=== PATIENT | female | born 1955 | race Caucasian/White ===

== ENCOUNTER → 2018-08-23 | Outpatient (CLI) | payer MEDICARE, MEDICAID, SELFPAY | END | disposition home or self-care (01) | DX: G47.10 Hypersomnia, unspecified (principal); F41.9 Anxiety disorder, unspecified | CPT/HCPCS: 95810 ==

== ENCOUNTER → 2018-09-30 | Outpatient (CLI) | payer MEDICARE, MEDICAID, SELFPAY | END | disposition home or self-care (01) | LOC: SL 20:30 | DX: G47.33 Obstructive sleep apnea (adult) (pediatric) (principal) | CPT/HCPCS: 95811 ==

== ENCOUNTER → 2018-10-15 10:51 | Outpatient (CLI) | payer MEDICAID, SELFPAY | DX: G47.33 Obstructive sleep apnea (adult) (pediatric) (principal) ==

== ENCOUNTER → 2018-12-13 | Outpatient (CLI) | payer MEDICAID, SELFPAY ==
[2016-07-06 04:08] VITALS: BMI 30.5
--- NOTE | 2018-12-13 09:38 | EKG12_ITS ---
Test Reason : PREOP Blood Pressure : / mmHG Vent. Rate : 056 BPM Atrial Rate : 056 BPM P-R Int : 144 ms QRS Dur : 098 ms QT Int : 452 ms P-R-T Axes : -20 033 058 degrees QTc Int : 436 ms Sinus bradycardia Otherwise normal ECG Confirmed by KASIE BENAVIDEZ, MATIAS ([id number]), assignment desk editor LIN ORTIZ ([id number]) on 12/18/2018 9:38:29 A M Referred By: Chitra Rankin Confirmed By:SHALOM FERRO MD
== END | disposition home or self-care (01) ==
LOC: CVS 09:34
PROVIDERS: Referring Provider Nurse Practitioner Family; Visit Provider Nurse Practitioner Family
DX: H43.12 Vitreous hemorrhage, left eye (principal)
CPT/HCPCS: 93005

== ENCOUNTER 2019-04-12 20:22 | Emergency (ER) | payer MEDICARE, MEDICAID, SELFPAY ==
[2019-04-12 20:22] VITALS: BP 138/78; PULSE 71; RESP 16; TEMP 36.6; O2SAT 96; BMI 29.7
[2019-04-12 20:36] LABS: Bedside Glucose 422 mg/dL (70-110)
--- NOTE | 2019-04-12 22:09 | ED.DCSUM_ITS ---
- ER Visit Summary Date of Service: 04/12/19 Chief Complaint: Hyperglycemia History of Present Illness: The patient is a 64 F who presents with hyperglycemia that has been getting progressively worse over the past several days. Family states patient was recently switched to insulin pens and her blood sugars have been getting higher since that time. Family states patient's blood sugar at home was 504. Patient denies any recent fevers or chills. Patient does admit to a cough that is chronic. Patient denies any nausea or vomiting. Patient denies any dysuria or hematuria. Patient denies any urinary frequency. Physical Examination: Vital signs are stable. Patient is afebrile. Patient is in no acute distress. Oral mucosa is pink and moist. Neck is supple. Trachea is midline. There is no JVD noted. Heart was regular rate and rhythm. Lungs are clear and equal bilaterally. Abdomen is soft. Bowel sounds are normal. There is no tenderness. There is no rebound or guarding noted. Skin is warm dry. Cranial nerves II through XII are intact. There are no focal motor or sensory deficits noted. Extremities are intact. There is no calf tenderness or edema. Test Results: CBC was normal. Comprehensive metabolic profile showed a glucose of 328, BUN of 40, and creatinine of 1.17. Venous blood gas showed a pH of 7.42. Urinalysis showed leukocyte esterase of 25 with 10-25 white blood cells and 1+ bacteria. Serum ketones were negative. Emergency Department Course and Treatment: Patient was given IV fluids here. Patient was feeling better on reevaluation. Patient was instructed to keep a log of her blood sugars. Patient was given a prescription for Bactrim. Patient was instructed to follow-up with Dr. Keane as scheduled on Sunday. Patient and family understood and were agreeable with the plan. All questions were answered. Disposition: Discharge home Impression: 1. Urinary tract infection 2. Hyperglycemia This note was generated with [employer] dictation software. It may contain incorrect words, spelling, and punctuation that were not noted in review of the chart prior to signing ED Disposition - Plan for ED Patient: Disposition: Home or Assisted Living Diagnosis: Hyperglycemia, Urinary tract infection Instructions: ED Diabetic Hyperglycemia Prescriptions: Smz/Tmp Ds [Bactrim Ds] 1 tab PO BID #6 tab Prescription Printed Referrals: [facility] Yuki Leonard [Primary Care Provider] - Hilario Keane MD [STAFF PHYSICIAN] - Keep Melvin appointment
[2019-04-12 22:22] VITALS: BP 169/69; PULSE 67; RESP 16; O2SAT 95
[2019-04-12] MEDS: 0.9% Normal Saline 1,000 ML 1000 ML IV (22:30)
[2019-04-12 22:39] LABS: Color, Urine Yellow (Yellow); Glucose, Dipstick 1000 mg/dl (Normal); Ketone-Dipstick Negative (Negative); Leukocyte Esterase-Dipstick 25 /ul (Negative); Mucous, Urine 0 SEEN /hpf (<or=2+); Nitrite-Dipstick Negative (Negative); Occult Blood-Urine Negative /ul (Negative); Protein-Dipstick Negative (Negative); Red Blood Cells-Urine 0 SEEN /hpf (0-5); Specific Gravity, Urine 1.015 (1.002-1.030); Urine Bilirubin Dipstick Negative (Negative); Urine Clarity Sl. Cloudy (Clear); Urine Urobilinogen Normal (Normal)
[2019-04-12 22:45] LABS: Squamous Epithelial Cells - UA 0-5 SEEN /hpf (5-10)
[2019-04-12 22:47] LABS: Bacteria 1+ /hpf (None Seen)
[2019-04-12 22:48] LABS: White Blood Cells 10-25 SEEN /hpf (0-5)
[2019-04-12 22:50] LABS: Blood Gas Specimen Type VEN; O2 Delivery Device Room Air; SITE R Brachial; Time Given 2238; VBG BASE EXCESS 4 mmol/L (-1.0-3.5); VBG Bicarbonate 29 mmol/L (22-26); VBG Oxygen Content 30 mmol/L (23-33); VBG PO2 127 mmHg (25-40); VBG SO2 99 % (50-70); VBG pCO2 44.4 mmHg (41-51); VBG pH 7.42 (7.32-7.42)
[2019-04-12 22:53] LABS: ALB/GLOB Ratio 0.9 RATIO (0.9-2.4); AST(SGOT) 24 U/L (15-37); Alanine Aminotransfer ALT/SGPT 38 U/L (13-56); Albumin, Serum 3.6 g/dL (3.2-5.0); Alkaline Phosphatase 67 U/L (45-117); Anion Gap 7 (5-15); BUN 40 mg/dL (7-18); BUN/Creat Ratio 34.2 RATIO (10-20); Calcium,Total 8.4 mg/dL (8.5-10.1); Chloride 105 mmol/L (98-107); Creatinine, Serum 1.17 mg/dL (0.55-1.02); EST Glomerular Filtration Rate 50 mL/min (>60); Est Glom Filt Rate - Afr Amer 60 mL/min (>60); Estimated Creatinine Clearance 47.86 ml/min; Glucose 328 mg/dL (74-106); Potassium 4.3 mmol/L (3.5-5.1); Protein, Total 7.6 g/dL (6.4-8.2); Sodium Level 138 mmol/L (136-145)
[2019-04-12 22:59] LABS: Absolute Lymphocyte Count 2.36 X10^3/uL (0.83-4.51); Absolute Neutrophil Count 5.9 X10^3/uL (2.0-7.7); Basophil# 0.09 X10^3/uL; Basophil% 0.9 % (0-1); Eosinophil# 0.47 X10^3/uL; Eosinophils% 4.8 % (0-5); Hematocrit 37.6 % (37-47); Hemoglobin 12.8 g/dL (12.0-15.0); Lymphocyte # 2.36 X10^3/ul (4.0); Mean Corpuscular Hgb 30.3 pg (27.0-32.0); Mean Corpuscular Volume 88.9 fL (81-99); Mean Platelet Vol. 10.5 fl (6.2-12.0); Monocyte# 0.94 X10^3/uL; Monocyte% 9.6 % (0-10); NRBC Flagged by Analyzer 0 % (0-5); Neutrophil # 5.93 X10^3/uL (2.7-7.7); Neutrophil % 60.2 % (47-70); Platelet Count 176 K/mm3 (150-450); RBC Distribution Width CV 13.2 % (11.6-14.6); RBC Distribution Width SD 42.7 fl (35.1-43.9); Red Blood Count 4.23 M/mm3 (4.2-5.4); White Blood Count 9.8 K/mm3 (4.4-11.0)
[2019-04-12 23:18] VITALS: BP 162/55; PULSE 71; RESP 22; O2SAT 95
[2019-04-13 00:03] VITALS: BP 156/75; PULSE 70; RESP 20; O2SAT 93
== END 2019-04-13 00:09 | disposition home or self-care (01) ==
PROVIDERS: Emergency Provider Emergency Medicine
DX: N39.0 Urinary tract infection, site not specified (principal); E11.65 Type 2 diabetes mellitus with hyperglycemia; R05 Cough; Z86.73 Personal history of transient ischemic attack (TIA), and cerebral infarction without residual deficits; Z79.4 Long term (current) use of insulin; Z79.82 Long term (current) use of aspirin; Z79.899 Other long term (current) drug therapy
CPT/HCPCS: 80053; 81001; 82009; 82803; 82962; 85025; 96360; 96361; 99285; A4216